=== PATIENT | male | born 1940 | race Caucasian/White ===

== ENCOUNTER 2020-05-03 08:24 | Day surgery (SDC) | payer OTHER ==
[~2020-05-03] VITALS: Ht 177.8 cm; Wt 124.1 kg
[~2020-05-03 08:24] MED LIST: ALLOPURINOL100 MG PO; ASPIRIN81 MG PO; BRAIN MIGHT-DH1 EACH PO; CALCIUM 600-D31 EACH PO; GARLIC1500 MG PO; LASIX40 MG PO; MULTI VITAMIN1 EACH PO; PRAVACHOL20 MG PO; VITAMIN D325 MCG PO; ZESTRIL20 MG PO
[2020-05-03] MEDS ORDERED: ASPIRIN325 MG PO (08:50)
--- NOTE | 2020-05-03 11:58 | NUR ---
05/03/20 1158 Grecia Rendon 1142 PT ARRIVED IN PACU NON RESPONSIVE TO NOXIOUS STIMULI WITH OPA IN PLACE. 1145 ICE TO ABD. 1155 NO CHANGE IN PT STATUS.
--- NOTE | 2020-05-03 12:29 | NUR ---
PT ARRIVES TO DS RM 4 FROM PACU AWAKE AND ALERT. PT DENIES ANY PAIN IN SURGICAL SITE. PT DENIES NAUSEA, TOLERATES WATER WELL. PT PROVIDED APPLESAUCE PER REQUEST. SIG OTHER, PAT NOTIFIED OF PT RETRUN. CALL LIGHT WITHIN REACH, DC CRITERIA EXPLAINED.
--- NOTE | 2020-05-03 12:56 | OR ---
[facility] [address], [place] [address] Signed DATE OF OPERATION: 05/03/2020 SURGEON: Tejas Gonzalez MD PREOPERATIVE DIAGNOSIS: Reducible umbilical hernia (3 cm). POSTOPERATIVE DIAGNOSIS: Reducible umbilical hernia (3 cm). PROCEDURE: Primary umbilical herniorrhaphy with intraabdominal Ventralex mesh (8 cm). ESTIMATED BLOOD LOSS: None. INDICATIONS: Jorje is a 80-year-old, obese diabetic gentleman with a protuberant abdomen. 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 He has had both knees replaced and he does great. He has had an umbilical hernia for many years. He said it is getting larger and the skin over top of quite thin. He said it is causing quite a bit of pain and interfering with his work the last few months. He had been to his primary care provider. He was asked to see me with respect to the above. I gave Jorje a booklet on hernias in the office. He went through it page by page. I circled the sections relevant to him. He understands the difference between the primary suture repair and a mesh repair. We also reviewed the expected intraop and postop course. He understands there is risk including, but not limited to bleeding, infection, scarring, change in contour of the skin, damage to bowel infection of mesh requiring removal, recurrent hernias and chronic pain. He had expressed understanding and wished to proceed. DESCRIPTION OF PROCEDURE: I met with Jorje and his in our preop area. We all agreed on the umbilical hernia. After this, he was taken into the operating room and placed in the supine position under general endotracheal tube anesthesia. He was given preoperative antibiotics. We held his subcutaneous heparin because he took aspirin this morning and we used SCDs. He was then prepped and draped in the usual sterile fashion. A standard transverse infraumbilical incision was made and carried down around the umbilicus bluntly and with the cautery. The hernia sac was excised and passed off the field. The omentum was easily reduced. The fascial defect was about 3 cm in diameter. Electronically Signed By: TEJAS GONZALEZ MD 05/03/20 1256 PATIENT NAME: JORJE RICKS OPERATIVE REPORT DATE OF : 44 REPORT #: [id number] PHYSICIAN: TEJAS GONZALEZ MD PCP: NO PRIMARY CARE PHYSICIAN REPORT IS CONFIDENTIAL AND NOT TO BE RELEASED WITHOUT AUTHORIZATION [facility] [address], [place] [address] Signed Consequently, we chose our 8 cm round Ventralex mesh. It was placed inside the abdomen, brought up, flushed against the posterior abdominal wall. The fascial defect was closed transversely with a running #1 Prolene suture. Several passes of the suture went through the tab on the mesh to help hold it in place. The tab was cut, flushed with the abdominal wall discarded. We then injected local anesthetic into his abdominal wall and subcutaneous tissues. The wound was irrigated and suctioned out until clear. The umbilical skin was held down in the midline fascia with an interrupted 2-0 PDS suture. The dermis was reapproximated with interrupted 3-0 subcuticular Monocryl sutures. The skin edges were reapproximated with a running 5-0 fast absorbing plain gut suture. Dry gauze and tape were then applied. Jorje was then awakened from his anesthesia, extubated in the OR, and taken to the recovery room in stable condition. Tejas Gonzalez MD [facility] /[id number] cc: MD Vipin Jarquin MD Copies: TEJAS GONZALEZ MD, RUSSEL J MD ~ Electronically Signed By: TEJAS GONZALEZ MD 05/03/20 1256 PATIENT NAME: JORJE RICKS OPERATIVE REPORT DATE OF : 44 REPORT #: [id number] PHYSICIAN: TEJAS GONZALEZ MD PCP: NO PRIMARY CARE PHYSICIAN REPORT IS CONFIDENTIAL AND NOT TO BE RELEASED WITHOUT AUTHORIZATION
[2020-05-03] MEDS ORDERED: HYDROCODON-ACE1 EAC8 PO (13:23)
--- NOTE | 2020-05-03 13:31 | NUR ---
PT RESTING IN BED AWAKE WATCHING TV WITH SIG OTHER AT BEDSIDE. PT SIG OTHER PROVIDES LUNCH, PT TOLERATES 100% WITH NO NAUSEA. PT DENIES PAIN IN SURGICAL SITE. PT ENCOURAGED TO USE CALL LIGHT WITH URGE TO VOID.
--- NOTE | 2020-05-03 13:35 | NUR ---
ICED WATER REFILLED AND APPLE JUICE PROVIDED, CALL LIGHT WITHIN REACH.
--- NOTE | 2020-05-03 14:05 | NUR ---
PT UP TO BATHROOM WITH RN ASSIST. PT HAS STEADY GAIT WITH NO COMPLAINTS OF DIZZINESS OR NAUSEA WHEN ASKED. PT ABLE TO VOID 450 MLS YELLOW URINE WITH NO PROBLEM. PT BACK TO DS RM 4 TO GET DRESSED, ENC TO OPEN CURTAIN WHEN FINISHED.
--- NOTE | 2020-05-03 14:13 | NUR ---
DC INSTRUCTIONS PRESENTED TO PT AND SIG OTHER, ALL QUESTIONS ADDRESSED. PT PROVIDED PAIN PRESCRIPTION AND INSTUCTED TO TAKE TO PREFERRED PHARMACY. PT DC VIA WC FROM DS RM 4 TO PERSONAL VEHICLE WITH SPOUSE TO HOME.
== END 2020-05-03 14:20 | disposition home or self-care (01) ==
LOC: DS 08:24
PROVIDERS: ATTEND Colon & Rectal Surgery
PROC: 0WUF0JZ Supplement Abdominal Wall with Synthetic Substitute, Open Approach (ICD-10-PCS; principal; 2020-05-03 10:00)
DX: K42.9 Umbilical hernia without obstruction or gangrene (principal); E78.5 Hyperlipidemia, unspecified; I12.9 Hypertensive chronic kidney disease with stage 1 through stage 4 chronic kidney disease, or unspecified chronic kidney disease; N18.30 Chronic kidney disease, stage 3 unspecified; E66.01 Morbid (severe) obesity due to excess calories; Z68.39 Body mass index [BMI] 39.0-39.9, adult; Z79.82 Long term (current) use of aspirin; Z79.899 Other long term (current) drug therapy; Z91.030 Bee allergy status; Z96.653 Presence of artificial knee joint, bilateral
CPT/HCPCS: 00750; C1781; J0330; J0690; J1100; J1885; J2250; J2405; J2704; J2765; J3010; J7121